=== PATIENT | female | born 1955 ===

== ENCOUNTER → 2020-12-11 | Outpatient (CLI) | payer OTHER ==
[~2020-12-11] MED LIST: ASCO100018 PO; ASPI325T17 PO; CALC-451 PO; FLAX1CAP PO; HYDR25TA6 PO; IBUP-1223 PO; LISI-167 PO; MAGN400T36 PO; METO-93 PO; MILK175C5 PO; OMEG1CAP23 PO; OXYC5TAB98 PO; SIMV20TA19 PO; TURM538C PO; VITA-74 PO; VITA1CAP7 PO; ZINC220T2 PO
[2020-12-11 12:33] LABS: BASOPHILS % (AUTO) 1 % (0-1); EOSINOPHILS % (AUTO) 3 % (1-7); LYMPHOCYTES % (AUTO) 27 % (22-44); MEAN CORPUSCULAR HEMOGLOBIN 30.2 pg (27.0-34.8); MEAN CORPUSCULAR HGB CONC 33.2 g/dL (32.4-35.8); MEAN PLATELET VOLUME 8.2 fL (7.4-10.4); MONOCYTES % (AUTO) 9 % (2-9); NEUTROPHILS % (AUTO) 61 % (42-75); PLATELET COUNT 278 x10^3/uL (130-400); RED BLOOD COUNT 4.61 x10^6/uL (3.82-5.3); RED CELL DISTRIBUTION WIDTH 13.7 % (9.6-15.2)
[2020-12-11 12:38] LABS: ALANINE AMINOTRANSFERASE 39 U/L (12-78); ANION GAP 7 mmol/L (5-15); CALCIUM 9.5 mg/dL (8.5-10.1); CHLORIDE 106 mmol/L (98-107)
[2020-12-11 12:41] LABS: ALKALINE PHOSPHATASE 81 U/L (45-117); BILIRUBIN,TOTAL 0.9 mg/dL (0.2-1.0); TOTAL PROTEIN 7.6 g/dL (6.4-8.2)
== END | disposition home or self-care (01) ==
LOC: STAR 11:07
PROVIDERS: ATTEND Orthopaedic Surgery
DX: Z01.810 Encounter for preprocedural cardiovascular examination (principal); Z01.818 Encounter for other preprocedural examination; M25.552 Pain in left hip; M13.852 Other specified arthritis, left hip; R94.31 Abnormal electrocardiogram [ECG] [EKG]; Z20.822 Contact with and (suspected) exposure to COVID-19
CPT/HCPCS: 36415; 80053; 85025; 87081; 93005; U0003; U0005

== ENCOUNTER 2020-12-18 08:32 | Day surgery (SDC) | payer OTHER, MEDICARE ==
[~2020-12-18] VITALS: Ht 162.6 cm; Wt 106.6 kg
[~2020-12-18 08:32] MED LIST changes: +EPINEPHRINE 1 MG/ML, 1ML ONE; +KETOROLAC 30 MG/1 ML ONE; +ROPIvacaine/PF 0.2%, 20 ML ONE; +SODIUM CHLORIDE 0.9% 50 ML ONE; +TRANEXAMIC ACID 100 MG/ML, 10ML ONE
[2020-12-18] MEDS ORDERED: CHLORHEXIDINE 15 ML UDC PO ONE (09:00)
[2020-12-18] MEDS ORDERED: LACTATED RINGERS 1,000 ML IV SCH (09:00)
[2020-12-18 09:11] VITALS: BP 123/73
[2020-12-18] MEDS ORDERED: CEFAZOLIN 1,000 MG ONE (10:28)
[2020-12-18] MEDS ORDERED: ONDANSETRON 2MG/ML, 2ML ONE (10:28)
[2020-12-18] MEDS ORDERED: ROCURONIUM 10 MG/ML,10ML ONE (10:28)
[2020-12-18] MEDS ORDERED: PROPOFOL 10 MG/ML, 20ML ONE (10:28)
[2020-12-18] MEDS ORDERED: SUCCINYLCHOLINE 20 MG/ML, 10ML ONE (10:28)
[2020-12-18] MEDS ORDERED: PROMETHAZINE 25 MG/ML, 1ML IM PRN (10:30)
[2020-12-18] MEDS ORDERED: CEFAZOLIN PMX 1GM/50ML 50 ML IVPB SCH (10:30)
[2020-12-18] MEDS ORDERED: DIAZEPAM 5 MG TABLET PO PRN (10:30)
[2020-12-18] MEDS ORDERED: HYDROmorphone 1 MG/ML, 1ML INJ IVPush PRN ×2 (10:30→12:00)
[2020-12-18] MEDS ORDERED: KETOROLAC 30 MG/1 ML IV SCH (10:30)
[2020-12-18] MEDS ORDERED: OXYcodone/APAP 5/325MG TABLET PO PRN (10:30)
[2020-12-18] MEDS ORDERED: OXYcodone 5 MG/5 ML ORAL.SOL UDC PO PRN ×2 (10:30→12:00)
[2020-12-18] MEDS ORDERED: ONDANSETRON 4 MG TABLET PO PRN (10:30)
[2020-12-18] MEDS ORDERED: ONDANSETRON 2MG/ML, 2ML IVPush PRN ×2 (10:30→12:00)
[2020-12-18] MEDS ORDERED: FENTANYL PF 250 MCG/5ML ONE ×2 (10:56→13:45)
[2020-12-18] MEDS ORDERED: LABETALOL 5MG/ML, 20ML IV PRN (12:00)
[2020-12-18] MEDS ORDERED: EPHEDRINE 50 MG/ML, 1ML IM PRN (12:00)
[2020-12-18] MEDS ORDERED: HALOPERIDOL 5 MG/ML IV PRN (12:00)
[2020-12-18] MEDS ORDERED: EPHEDRINE 50 MG/ML, 1ML IVPush PRN (12:00)
[2020-12-18] MEDS ORDERED: MEPERIDINE/PF 25MG/0.5ML IVPush PRN (12:00)
[2020-12-18] MEDS ORDERED: hydrALAzine 20 MG/ML, 1ML IV PRN (12:00)
[2020-12-18] MEDS ORDERED: PROMETHAZINE 25 MG/ML, 1ML IVPush PRN (12:00)
[2020-12-18] MEDS ORDERED: METHOCARBAMOL 1,000 MG in DEXTROSE 5% 100 ML IV PRN (12:00)
[2020-12-18] MEDS ORDERED: LORazepam 2 MG/ML, 1ML IVPush PRN (12:00)
[2020-12-18] MEDS ORDERED: ACETAMINOPHEN 325 MG TABLET PO PRN (12:00)
[2020-12-18] MEDS ORDERED: FENTANYL PF 100 MCG/2ML ONE ×2 (12:21→12:34)
[2020-12-18] MEDS: FENTANYL PF 100 MCG/2ML IV PRN ×2 (12:23→12:32)
[2020-12-18] MEDS ORDERED: OXYcodone 5 MG/5 ML ORAL.SOL UDC ONE (12:28)
[2020-12-18] MEDS ORDERED: LORazepam 2 MG/ML, 1ML ONE (12:29)
[2020-12-18] MEDS ORDERED: MEPERIDINE/PF 25MG/ML,1ML ONE (12:34)
[2020-12-18] MEDS ORDERED: TRANEXAMIC ACID 1,000 MG in SODIUM CHLORIDE 0.9% 100 ML IVPB ONE (13:00)
[2020-12-18] MEDS ORDERED: METOPROLOL SUCCINATE 50 MG TAB.ER.24H PO SCH (21:00)
[2020-12-18] MEDS ORDERED: LISINOPRIL 10 MG TABLET PO SCH (21:00)
[2020-12-18] MEDS ORDERED: DOCUSATE 100 MG CAPSULE PO SCH (21:00)
[2020-12-19] MEDS ORDERED: ASPIRIN 81 MG TABLET EC PO SCH ×2 (06:00→18:00)
[2020-12-19] MEDS ORDERED: HYDROCHLOROTHIAZIDE 25 MG TABLET PO SCH (09:00)
== END 2020-12-18 17:45 | disposition home or self-care (01) ==
LOC: OUT 08:32 → ORIP 10:20 → UNDOADMOB 10:20
PROVIDERS: ATTEND Orthopaedic Surgery
DX: M16.12 Unilateral primary osteoarthritis, left hip (principal); M85.88 Other specified disorders of bone density and structure, other site; M25.752 Osteophyte, left hip; I10 Essential (primary) hypertension; E66.9 Obesity, unspecified; Z68.41 Body mass index [BMI] 40.0-44.9, adult; Z79.891 Long term (current) use of opiate analgesic; Z79.899 Other long term (current) drug therapy; Z96.643 Presence of artificial hip joint, bilateral; Z82.61 Family history of arthritis; Z82.3 Family history of stroke
CPT/HCPCS: 27130; 36415; 72170; 86850; 86900; 97162; C1713; C1776; J0171; J0330; J0690; J1170; J1885; J2060; J2175; J2405; J2704; J2795; J2800; J3010; J7120